=== PATIENT | female | born 1940 | race Caucasian/White ===

== ENCOUNTER 2022-01-29 12:02 | Observation (INO) | payer MEDICARE, OTHER ==
[~2022-01-29] VITALS: Ht 185.4 cm; Wt 49.9 kg
[2022-01-29] MEDS ORDERED: Morphine 4mg Syringe 4 MG/ML INJ IV PRN (17:00)
[2022-01-29] MEDS ORDERED: SODIUM CHLORIDE 0.9% 1000ML 1,000 ML IV SCH (17:00)
[2022-01-29 20:28] VITALS: BP 174/98
[2022-01-29] MEDS: DEXTROSE 5%/0.9% SOD CHL 1,000 ML IV SCH (22:30)
[2022-01-29] MEDS ORDERED: HYDROCODONE/APAP 5MG-325MG TAB PO PRN (22:45)
[2022-01-29 22:55] LABS: BASOPHILS % 0.3 % (0.0-1.0); EOSINOPHILS # (AUTO) 0.1 (0.0-0.4); EOSINOPHILS % 0.7 % (0.0-6.0); HEMATOCRIT 39.7 % (34.2-44.1); HEMOGLOBIN 12.9 g/dL (12.0-16.0); LYMPHOCYTES # (AUTO) 2.4 (1.0-3.2); LYMPHOCYTES % 21.2 % (18.0-39.1); MEAN CORPUSCULAR HEMOGLOBIN 30.3 pg (28-32); MEAN CORPUSCULAR HGB CONC 32.5 g/dL (31-35); MEAN CORPUSCULAR VOLUME 93.2 fL (81-99); MONOCYTES # (AUTO) 1.1 (0.2-0.8); MONOCYTES % 9.4 % (4.4-11.3); NEUTROPHILS # (AUTO) 7.8 (2.1-6.9); NEUTROPHILS % 68.1 % (38.7-80.0); PLATELET COUNT 376 x10e3/uL (140-360); RED BLOOD COUNT 4.26 x10e6/uL (3.6-5.1); RED CELL DISTRIBUTION WIDTH 13.2 % (11.7-14.4)
[2022-01-29 23:03] LABS: ANION GAP 12.5 mmol/L (8-16); CALCIUM 8.9 mg/dL (8.4-10.2); CREATININE, SERUM 0.68 mg/dL (0.57-1.11); POTASSIUM 3.5 mmol/L (3.5-5.1)
[2022-01-29] MEDS ORDERED: DIPHENHYDRAMINE HCL INJ 50 MG/ML VIAL IV PRN (23:30)
[2022-01-30] MEDS ORDERED: KETOROLAC TROMETHAMINE 30 MG/ML VIAL IV PRN (02:00)
[2022-01-30] MEDS ORDERED: ALBUTEROL/IPRATROPIUM 3 ML NEB NEB PRN (02:00)
[2022-01-30] MEDS ORDERED: ACETAMINOPHEN 325 MG TAB PO PRN (02:00)
[2022-01-30] MEDS ORDERED: SIMETHICONE 80 MG CHEW PO PRN (02:00)
[2022-01-30] MEDS ORDERED: ONDANSETRON HCL INJ 2MG/ML 2ML 2 MG/ML VIAL IV PRN (02:00)
[2022-01-30] MEDS ORDERED: QUETIAPINE FUMARATE 25 MG TAB PO PRN (02:00)
[2022-01-30] MEDS ORDERED: DOCUSATE SODIUM 100 MG CAP PO PRN (02:00)
[2022-01-30] MEDS ORDERED: DEXTROSE 50% SYRINGE 50 ML IV PRN (02:00)
[2022-01-30] MEDS ORDERED: MELATONIN 5 MG TABLET PO PRN (02:00)
[2022-01-30] MEDS ORDERED: LIDOCAINE 4% PATCH TP PRN (02:00)
[2022-01-30] MEDS ORDERED: BENZONATATE 100 MG CAP PO PRN (02:00)
[2022-01-30] MEDS ORDERED: POTASSIUM CHLORIDE 20 MEQ TAB CR PO PRN (02:00)
[2022-01-30] MEDS ORDERED: HYDRALAZINE HCL 20 MG/ML VIAL IV PRN (02:00)
[2022-01-30] MEDS ORDERED: DIPHENHYDRAMINE HCL 25 MG CAP PO PRN (02:00)
[2022-01-30 04:00] VITALS: BP 142/92
[2022-01-30 06:01] LABS: BASOPHILS # (AUTO) 0.1 (0.0-0.1); EOSINOPHILS # (AUTO) 0.2 (0.0-0.4); EOSINOPHILS % 1.7 % (0.0-6.0); HEMATOCRIT 42.4 % (34.2-44.1); HEMOGLOBIN 12.9 g/dL (12.0-16.0); LYMPHOCYTES # (AUTO) 2.5 (1.0-3.2); LYMPHOCYTES % 28.4 % (18.0-39.1); MEAN CORPUSCULAR HGB CONC 30.4 g/dL (31-35); MEAN CORPUSCULAR VOLUME 98.6 fL (81-99); NEUTROPHILS # (AUTO) 5.1 (2.1-6.9); NEUTROPHILS % 57.6 % (38.7-80.0); PLATELET COUNT 335 x10e3/uL (140-360); RED CELL DISTRIBUTION WIDTH 13.2 % (11.7-14.4)
[2022-01-30 06:40] LABS: CALCIUM 8.4 mg/dL (8.4-10.2); CREATININE, SERUM 0.61 mg/dL (0.57-1.11)
[2022-01-30] MEDS ORDERED: PANTOPRAZOLE SOD 40 MG TABEC PO SCH (07:30)
[2022-01-30 08:05] VITALS: BP 154/76
[2022-01-30 08:10] VITALS: BP 154/76
[2022-01-30 11:33] VITALS: BP 142/85
[2022-01-30] MEDS: DEXTROSE 5%/0.9% SOD CHL 1,000 ML IV SCH (11:50)
[2022-01-30 15:44] VITALS: BP 134/83
[2022-01-30] MEDS ORDERED: ENOXAPARIN SOD INJ 40 MG/0.4 ML SYR SC SCH (17:00)
== END 2022-01-30 18:24 | disposition home or self-care (01) ==
LOC: ER 14:35 → ERHOLD 17:50 → MED/SURG3 20:35
PROVIDERS: ADMIT Internal Medicine; ATTEND Internal Medicine
DX: S42.211A Unspecified displaced fracture of surgical neck of right humerus, initial encounter for closed fracture (principal); F03.90 Unspecified dementia, unspecified severity, without behavioral disturbance, psychotic disturbance, mood disturbance, and anxiety; W01.0XXA Fall on same level from slipping, tripping and stumbling without subsequent striking against object, initial encounter; Y92.013 Bedroom of single-family (private) house as the place of occurrence of the external cause; Z88.0 Allergy status to penicillin; Z20.822 Contact with and (suspected) exposure to COVID-19
CPT/HCPCS: 36415 ×2; 70450; 72125; 72192; 73030; 73200; 80048 ×2; 85025 ×2; 97116; 97139; 97162; 97530; 99284; G0378 ×2; J7042; U0002